=== PATIENT | male | born 1975 | race Caucasian/White ===

== ENCOUNTER 2016-08-21 16:24 | Emergency (ER) | payer BC ==
[~2016-08-21] VITALS: Ht 180.3 cm; Wt 136.5 kg
[~2016-08-21 16:24] MED LIST: DIAZ2TAB PO; DIAZ5TAB PO; HYDR2TAB13 PO; IBUP800T PO; MULT-658 PO; OXYC-229 PO; OXYC-302 PO; TEST5POW3 PO
[2016-08-21] MEDS ORDERED: SODIUM CHLORIDE 0.9% 1,000ML IVBOLUS ONE (17:00)
[2016-08-21] MEDS ORDERED: ONDANSETRON 2MG/ML, 2ML IVPush ONE (17:00)
[2016-08-21] MEDS ORDERED: SODIUM CHLORIDE FLUSH 10ML SYR IVF ONE (17:00)
[2016-08-21 17:17] LABS: HEMOGLOBIN 16.2 g/dL (13.7-18.0)
[2016-08-21 17:24] LABS: ASPARTATE AMINO TRANSFERASE 31 U/L (15-37); BLOOD UREA NITROGEN 10 mg/dL (7-18)
[2016-08-21] MEDS ORDERED: HYDROmorphone 1 MG/ML, 1ML ONE ×3 (17:27→20:04)
[2016-08-21] MEDS ORDERED: ONDANSETRON 2MG/ML, 2ML ONE (17:28)
[2016-08-21] MEDS: HYDROmorphone 1 MG/ML, 1ML IVPush PRN ×2 (17:41→18:48)
[2016-08-21] MEDS ORDERED: HYDROmorphone 1 MG/ML, 1ML IV ONE (20:00)
[2016-08-21] MEDS ORDERED: DIAZEPAM 5 MG/ML, 2ML IV ONE (20:00)
[2016-08-21] MEDS ORDERED: DIAZEPAM 5 MG/ML, 2ML ONE (20:04)
[2016-08-21 20:35] VITALS: BP 146/87
== END 2016-08-21 20:39 | disposition home or self-care (01) ==
LOC: ED 17:05
DX: S32.019A Unspecified fracture of first lumbar vertebra, initial encounter for closed fracture (principal); I10 Essential (primary) hypertension; V29.9XXA Motorcycle rider (driver) (passenger) injured in unspecified traffic accident, initial encounter; Y93.89 Activity, other specified; Y92.89 Other specified places as the place of occurrence of the external cause; Y99.8 Other external cause status
CPT/HCPCS: 36415; 71010; 72072; 72110; 80053; 81003; 85025; 96361; 96374; 96375; 96376; 99285; J1170; J2405; J3360; J7030

== ENCOUNTER 2019-08-21 11:23 | Inpatient (IN) | payer BC, OTHER ==
[~2019-08-21] VITALS: Ht 180.3 cm; Wt 143.2 kg
[~2019-08-21 11:23] MED LIST changes: -HYDR2TAB13 PO; +HYDR2TAB29 PO; +IBUP-1223 PO; -IBUP800T PO; -OXYC-229 PO; +OXYC-307 PO
--- NOTE | 2019-08-21 11:35 | NUR ---
PT WHEELED BACK TO ROOM VIA WC BY MILLING SUPERVISOR.
--- NOTE | 2019-08-21 11:38 | NUR ---
PT PRESENTED TO ED D/T "SHARP" DIFFUSE ABD PAIN SINCE YESTERDAY. +N/V. DENIES F/C. STATES HX OF MULTIPLE BOWEL RESECTIONS. STATES I THINK I HAVE A BOWEL OBSTRUCTIONS "I KNOW WHAT IT FEELS LIKE."
--- NOTE | 2019-08-21 11:41 | NUR ---
PA AT BEDSIDE EVALUATING PT.
[2019-08-21] MEDS ORDERED: ONDANSETRON 2MG/ML, 2ML ONE ×2 (11:52→16:28)
[2019-08-21] MEDS ORDERED: MORPHINE SULFATE 4 MG/ML, 1ML ONE ×3 (11:52→14:41)
[2019-08-21] MEDS: MORPHINE SULFATE 4 MG/ML, 1ML IVPush PRN ×2 (11:53→13:19)
--- NOTE | 2019-08-21 11:56 | NUR ---
PIV ACCESS OBTAINED, 20 R AC. LABS COLLECTED. PT MEDICATED FOR 10/10 DIFFUSE ABD PAIN.
[2019-08-21] MEDS ORDERED: ONDANSETRON 2MG/ML, 2ML IVPush ONE ×2 (12:00→16:30)
[2019-08-21] MEDS ORDERED: SODIUM CHLORIDE FLUSH 10ML SYR IVF ONE (12:00)
[2019-08-21 12:11] LABS: BASOPHILS # (AUTO) 0.05 x10^3/uL (0-0.1); BASOPHILS % (AUTO) 0 % (0-1); EOSINOPHILS # (AUTO) 0.01 x10^3/uL (0-0.4); EOSINOPHILS % (AUTO) 0 % (1-7); LYMPHOCYTES # (AUTO) 1.93 x10^3/uL (1-3.4); LYMPHOCYTES % (AUTO) 16 % (22-44); MD NO; MEAN CORPUSCULAR HEMOGLOBIN 26.5 pg (27.5-34.5); MEAN CORPUSCULAR HGB CONC 32.2 g/dL (33.2-36.2); MEAN CORPUSCULAR VOLUME 82.4 fL (81-97); MEAN PLATELET VOLUME 9.7 fL (7.4-10.4); MONOCYTES # (AUTO) 0.65 x10^3/uL (0.2-0.8); MONOCYTES % (AUTO) 5 % (2-9); NEUTROPHILS # (AUTO) 9.49 x10^3/uL (1.8-6.8); NEUTROPHILS % (AUTO) 78 % (42-75); PLATELET COUNT 347 x10^3/uL (130-400); RED BLOOD COUNT 6.64 x10^6/uL (4.38-5.82)
[2019-08-21 12:22] LABS: ANION GAP 7 mmol/L (5-15); CALCIUM 9.9 mg/dL (8.5-10.1); CHLORIDE 104 mmol/L (98-107); CREATININE 1.21 mg/dL (0.7-1.3)
[2019-08-21 12:23] LABS: ALANINE AMINOTRANSFERASE 38 U/L (12-78); ALBUMIN 4.1 g/dL (3.4-5.0)
[2019-08-21 12:25] LABS: ALKALINE PHOSPHATASE 104 U/L (45-117); BILIRUBIN,TOTAL 0.7 mg/dL (0.2-1.0); TOTAL PROTEIN 9.6 g/dL (6.4-8.2)
--- NOTE | 2019-08-21 12:32 | NUR ---
PT RESTING IN [facility]. VSS. PT REPORTS PAIN IMPROVEMEN. "ITS BETTER THAN IT WAS"
--- NOTE | 2019-08-21 12:46 | NUR ---
PT IN CT SCAN.
--- NOTE | 2019-08-21 12:49 | NUR ---
REPORT TO YOANDY LEACH TO ASSUME PRIMARY CARE OF PT.
[2019-08-21] MEDS ORDERED: OMNIPAQUE 350 MG/ML, 150 ML BOTTLE ONE (13:07)
--- NOTE | 2019-08-21 13:31 | NUR ---
BREAK RN: PT MEDICATED PER MAR PER REQUEST FOR PAIN. PT HAS URINE CUP TO PROVIDE URINE SAMPLE, PT EDUCATED ON NEED FOR SAMPLE AND NEED FOR CATH IF UNABLE TO PROVIDE, PT AGREES AND WOULD LIKE TO TRY BEFORE CATH.
--- NOTE | 2019-08-21 13:45 | NUR ---
URINE SAMPLE WALKED TO LAB
[2019-08-21 14:04] LABS: MICROSCOPIC INDICATED
[2019-08-21 14:15] LABS: CULTURE INDICATED? NO
[2019-08-21] MEDS ORDERED: MORPHINE SULFATE 4 MG/ML, 1ML IVPush ONE (15:00)
--- NOTE | 2019-08-21 15:01 | NUR ---
PT MEDICATED TO MAR AND NG TUBE PLACED, PT TOLERATED WELL. VS REMAIN STABLE.
--- NOTE | 2019-08-21 15:55 | NUR ---
PT LAYING IN BED, WATCHING TV. STATES NAUSEA, WILL LET MD KNOW. VSS.
[2019-08-21] MEDS ORDERED: ONDANSETRON 2MG/ML, 2ML IVPush PRN (16:30)
[2019-08-21] MEDS ORDERED: ONDANSETRON ODT 4 MG PO PRN (16:30)
[2019-08-21 16:46] LABS: INTERNATIONAL NORMALIZED RATIO 0.99 (0.93-1.1); PROTHROMBIN TIME 10.5 Seconds (9.6-11.5)
--- NOTE | 2019-08-21 17:00 | NUR ---
PT AMBULATORY TO BATHROOM, STATES MINIMAL LOOSE BM, GAIT STEADY TO BATHROOM. NOW LAYING IN BED WATCHING TV, VSS, WILL CONTINUE TO MONITOR.
--- NOTE | 2019-08-21 17:08 | NUR ---
REPORT GIVEN TO YOANDY PHIPPS.
[2019-08-21 17:31] VITALS: BP 146/72
[2019-08-21] MEDS: HYDROmorphone 1 MG/ML, 1ML INJ IVPush PRN ×3 (17:47→21:47)
[2019-08-21] MEDS: HEPARIN 5,000 UNITS/ML, 1ML SQ SCH (17:47)
[2019-08-21] MEDS: SODIUM CHLORIDE 0.9% 1,000 ML IV SCH (17:48)
[2019-08-21 19:39] VITALS: BP 107/67
[2019-08-22] MEDS: HYDROmorphone 1 MG/ML, 1ML INJ IVPush PRN ×4 (00:51→10:16)
[2019-08-22 01:04] VITALS: BP 127/72
[2019-08-22] MEDS: HEPARIN 5,000 UNITS/ML, 1ML SQ SCH ×3 (02:35→16:00)
[2019-08-22] MEDS: SODIUM CHLORIDE 0.9% 1,000 ML IV SCH ×3 (04:03→23:20)
[2019-08-22 06:12] LABS: ANION GAP 5 mmol/L (5-15); CALCIUM 8.6 mg/dL (8.5-10.1); CHLORIDE 107 mmol/L (98-107)
[2019-08-22 06:14] LABS: CREATININE 1.17 mg/dL (0.7-1.3)
[2019-08-22 06:15] LABS: BASOPHILS # (AUTO) 0.01 x10^3/uL (0-0.1); BASOPHILS % (AUTO) 0 % (0-1); EOSINOPHILS # (AUTO) 0.02 x10^3/uL (0-0.4); EOSINOPHILS % (AUTO) 0 % (1-7); LYMPHOCYTES # (AUTO) 1.58 x10^3/uL (1-3.4); LYMPHOCYTES % (AUTO) 27 % (22-44); MD NO; MEAN CORPUSCULAR HEMOGLOBIN 26.9 pg (27.5-34.5); MEAN CORPUSCULAR HGB CONC 32.2 g/dL (33.2-36.2); MEAN CORPUSCULAR VOLUME 83.7 fL (81-97); MEAN PLATELET VOLUME 9.9 fL (7.4-10.4); MONOCYTES # (AUTO) 0.56 x10^3/uL (0.2-0.8); MONOCYTES % (AUTO) 9 % (2-9); NEUTROPHILS # (AUTO) 3.77 x10^3/uL (1.8-6.8); NEUTROPHILS % (AUTO) 63 % (42-75); PLATELET COUNT 286 x10^3/uL (130-400); RED BLOOD COUNT 5.77 x10^6/uL (4.38-5.82); RED CELL DISTRIBUTION WIDTH 16.2 % (9.4-14.8)
[2019-08-22 07:52] VITALS: BP 117/71
[2019-08-22] MEDS: BISACODYL 10 MG SUPP PR SCH (09:00)
[2019-08-22] MEDS ORDERED: OMNIPAQUE 350 MG/ML, 150 ML BOTTLE ONE (10:33)
[2019-08-22 13:13] VITALS: BP 147/96
[2019-08-22] MEDS: ACETAMINOPHEN 500 MG TABLET PO PRN ×2 (14:52→23:15)
[2019-08-22] MEDS: IBUPROFEN 800 MG TABLET PO SCH ×2 (16:00→20:03)
[2019-08-22 18:52] VITALS: BP 135/89
[2019-08-23] MEDS: HEPARIN 5,000 UNITS/ML, 1ML SQ SCH ×2 (01:25→09:30)
[2019-08-23 03:48] VITALS: BP 130/81
[2019-08-23 08:40] VITALS: BP 153/91
[2019-08-23] MEDS: BISACODYL 10 MG SUPP PR SCH (09:00)
[2019-08-23] MEDS: IBUPROFEN 800 MG TABLET PO SCH (09:00)
[2019-08-23] MEDS: SODIUM CHLORIDE 0.9% 1,000 ML IV SCH (10:00)
== END 2019-08-23 12:15 | disposition home or self-care (01) | DRG 392 ==
LOC: ED 11:55 → EDIP 14:26 → 4NE 17:26
PROVIDERS: ADMIT Internal Medicine; ATTEND Family Medicine
DX: R10.9 Unspecified abdominal pain (principal); Z68.41 Body mass index [BMI] 40.0-44.9, adult; D72.829 Elevated white blood cell count, unspecified; E66.01 Morbid (severe) obesity due to excess calories; I10 Essential (primary) hypertension
CPT/HCPCS: 36415; 74018; 74177; 74240; 80048; 80053; 81001; 85025; 85610; 93005; 96374; 96375; 96376; 99285; G0378; J1170; J1644; J2405; Q9967; J2270; J7030